=== PATIENT | male | born 1980 | race Caucasian/White ===

== ENCOUNTER 2016-07-08 21:09 | Emergency (ER) | payer OTHER ==
[2016-07-08 22:22] LABS: SPECIFIC GRAVITY 1.025 (1.001-1.030); URINE BILIRUBIN NEGATIVE (NEGATIVE); URINE BLOOD NEGATIVE (NEGATIVE); URINE GLUCOSE (UA) NEGATIVE (NEGATIVE); URINE LEUKOCYTE ESTERASE TRACE (NEGATIVE); URINE NITRITE NEGATIVE (NEGATIVE); URINE PROTEIN TRACE (NEGATIVE); URINE UROBILINOGEN 1 mg/dL (0-1 mg/dl)
[2016-07-08 22:24] LABS: URINE APPEARANCE CLEAR; URINE COLOR AMBER
[2016-07-08 22:34] LABS: URINE BACTERIA 0; URINE EPITHELIAL CELLS 0 /hpf; URINE RBC 0-2 /hpf; URINE WBC 0-1 /hpf
--- NOTE | 2016-07-09 07:58 | US ---
EXAMINATION:SCROTUM CONTENTS CLINICAL INDICATION: Bilateral testicular pain. Worsening in severity opacity days. COMPARISON:None FINDINGS: RIGHT: Epididymis: 1.2 x 0.9 x 0.8 cm there are multiple small epididymal cysts. Testicle: Measures: 4.5 x 2.9 x 3.4 centimeters. Echotexture:Normal Doppler flow:Normal Hydrocele:None Comment:None LEFT: Epididymis: 1.0 x 1.0 x 0.9 centimeters there are small epididymal cysts. Testicle: Measures: 4.6 x 2.8 x 3.4 centimeters. Echotexture:Normal Doppler flow:Normal Hydrocele:None Comment:None IMPRESSION: 1. No testicular mass or evidence of torsion. No hydrocele or evidence of inflammation. 2. No evidence of varicocele or discrete lesion. 3. Small bilateral epididymal cysts. Findings were communicated by [facility] to the emergency department at: 12:45 AM 07/09/2016
== END 2016-07-09 01:28 | disposition home or self-care (01) ==
LOC: ED 21:09
DX: N50.812 Left testicular pain (principal)